=== PATIENT | female | born 1960 | race Caucasian/White ===

== ENCOUNTER 2018-05-25 09:42 | Outpatient (CLI) | payer BC ==
[2018-05-25 11:44] LABS: Hemoglobin 12.2 g/dL (12.0-16.0); Mean Corpuscular HGB CONC 31.3 g/dL (32.0-36.0); Mean Corpuscular Hemoglobin 28.4 pg (27.0-31.0); Mean Corpuscular Volume 90.9 fL (78.0-98.0); Mean Platelet Volume 9.2 fL (7.4-10.4); Platelet Count 331 thou/uL (130-400); RBC Distribution Width 15.8 % (11.5-14.5); Red Blood Cell (RBC) Count 4.29 mill/uL (4.20-5.40); White Blood Cell (WBC) Count 5.9 thou/uL (4.8-10.8)
[2018-05-25 12:06] LABS: Anion Gap 10 mmol/L (10-20); BUN (Urea Nitrogen) 8 mg/dL (9.8-20.1); Calc. Creatinine Clearance 0 mL/min (70-130); Calcium 9.4 mg/dL (7.8-10.44); Carbon Dioxide 23 mmol/L (22-29); Chloride 110 mmol/L (98-107); Estimated GFR-MDRD 67; Glucose 94 mg/dL (70-105); Potassium 3.2 mmol/L (3.5-5.1); Sodium 140 mmol/L (136-145)
== END 2018-05-25 09:43 | disposition home or self-care (01) ==
LOC: LABBT 09:42
PROVIDERS: ATTEND Urology
DX: Z01.812 Encounter for preprocedural laboratory examination (principal); N20.1 Calculus of ureter; N39.0 Urinary tract infection, site not specified; N12 Tubulo-interstitial nephritis, not specified as acute or chronic
CPT/HCPCS: 80048; 81001; 85027; 87086

== ENCOUNTER 2018-06-02 05:56 | Day surgery (SDC) | payer BC ==
[2018-05-25 10:04] VITALS: BMI 26.2
[2018-06-02] MEDS ORDERED: Levofloxacin 500 mg/D5W 100 ml Premix Bag ONE (06:14)
--- NOTE | 2018-06-02 08:27 | RAD ---
RADIOGRAPH ABDOMEN 1 VIEW: DATE: 06/02/18. TIME: 6:19 a.m. HISTORY: A 57-year-old female with ureteral obstruction. COMPARISON: None available. FINDINGS: There is a left ureteral stent. There are cholecystectomy clips. The bowel gas pattern is normal. Small faint densities medial to the upper curl of the ureteral stent probably represent stool in the overlapping transverse colon rather than calculi. There is a suture line at the right side of the ab domen. IMPRESSION: 1. Left ureteral stent. 2. Status post cholecystectomy. 3. Status post right bowel surgery. POS: EMILY
[2018-06-02] MEDS ORDERED: Fentanyl 100 MCG/2 ML VIAL ONE ×3 (13:26→16:04)
[2018-06-02] MEDS ORDERED: Lidocaine 1% PF 5 ML VIAL ONE (13:54)
[2018-06-02] MEDS ORDERED: Ondansetron HCl/PF 4 MG/2 ML Vial ONE (13:54)
[2018-06-02] MEDS ORDERED: ePHEDrine/0.9% NaCl/PF SYRINGE 50 mg/10 ml ONE (13:54)
[2018-06-02] MEDS ORDERED: PROPOFOL 200 MG/20 ML VIAL ONE (13:54)
[2018-06-02] MEDS ORDERED: Famotidine/PF 20 mg/2ml Vial ONE (14:33)
[2018-06-02] MEDS ORDERED: Iothalamate Meglumine 60% 50 ML VIAL FS ONE (14:41)
--- NOTE | 2018-06-03 10:44 | OP ---
DATE OF PROCEDURE: 06/02/2018 PREOPERATIVE DIAGNOSIS: Left ureteral stone. POSTOPERATIVE DIAGNOSIS: Left ureteral stone. PROCEDURE PERFORMED: Ureteroscopy, holmium laser lithotripsy, stone basketing, stent placement 6 x 2 6. SURGEON: Janell Cheatham M.D. ANESTHESIA: General with laryngeal mask airway. FINDINGS: Adequate removal with minimal fragmentation of the left ureteral stone. SPECIMEN: Stone. DRAINS REMAINING: Internal double-J stent with a string. ESTIMATED BLOOD LOSS: Minimal. COMPLICATIONS: None. INDICATIONS: The patient is a 57-year-old female who was admitted urgently at [facility] with a UTI and an obstructing stone and had a stent placed at that time. She dispersed and now presents fo r definitive therapy. TECHNIQUE: The patient was brought into the room by Anesthesia, and laid on table in the supine posi tion. After receiving general anesthetic, her legs were placed in lithotomy position with the left l eg lowered and the right leg elevated. She was prepped and draped in a sterile fashion. Using a 21- [place] cystoscope, the bladder was entered and the stent grasped and brought out through the urethral meatus. A wire was placed through this and confirmed up into the renal pelvis via fluoroscopy. The n, the old stent was fully removed leaving the wire in place and then a rigid ureteroscope went up to the level of the stone. Initially, this looked like I could extract it without fragmentation, but I was unable to grasp it with the basket, so holmium was used to fragment it with minimal power needed and then all fragments were removed. A final pass of the distal to mid ureter showed no further fra gments and the ureteroscope was removed. The cystoscope back fed over the wire and then a 6 x 26 sukhdeep ble-J was placed. The bladder was drained. The scope was broken apart and removed carefully leaving the string in place, which was then secured to the mons pubis. The patient tolerated the procedure well and was then awakened and transferred to PACU in stable condition.
== END 2018-06-02 18:08 | disposition home or self-care (01) ==
LOC: SDC 05:56
PROVIDERS: ATTEND Urology
DX: N20.1 Calculus of ureter (principal); N39.0 Urinary tract infection, site not specified; N12 Tubulo-interstitial nephritis, not specified as acute or chronic; E03.9 Hypothyroidism, unspecified; Z88.2 Allergy status to sulfonamides; Z88.6 Allergy status to analgesic agent
CPT/HCPCS: 74018; 76001; 82365; 88300; 96374; C1758; J0131; J1956; J2001; J2405; J2704; J3010; Q9961; S0028

== ENCOUNTER 2018-09-11 11:24 | Outpatient (CLI) | payer BC ==
--- NOTE | 2018-09-14 07:39 | RAD ---
TWO VIEWS BILATERAL KNEES: Date: 09-11-18 FINDINGS: There is no evidence for fracture or other acute osseous abnormality. Alignment appears anatomic. Chloe nt spaces appear preserved. IMPRESSION: Unremarkable bilateral knee radiographs. POS: EMILY
== END 2018-09-11 11:25 | disposition home or self-care (01) ==
LOC: BICRAD 11:24
PROVIDERS: ATTEND Internal Medicine Rheumatology
DX: M25.561 Pain in right knee (principal); M25.562 Pain in left knee; N20.1 Calculus of ureter
CPT/HCPCS: 81001